=== PATIENT | female | born 1995 | race Caucasian/White ===

== ENCOUNTER 2017-01-02 06:24 | Inpatient (IN) ==
[2017-01-02] MEDS ORDERED: ONDANSETRON 4 MG/2 ML VIAL IV PRN (07:19)
[2017-01-02] MEDS ORDERED: MEPERIDINE 50 MG/1 ML VIAL IM PRN (07:19)
[2017-01-02] MEDS ORDERED: OXYTOCIN/LR 20 UNIT/1,000 ML BAG IV SCH (07:30)
[2017-01-02 07:34] LABS: Basophils # 0.1 10*3/uL (0.0-0.2); Basophils % 0.4 % (0.0-0.8); Eosinophils # 0.3 10*3/uL (0.0-0.87); Eosinophils % 1.7 % (0.00-10.9); Hematocrit 33.5 VOL% (35.7-47.0); Hemoglobin 11.3 GM/DL (12.0-16.0); Immature Granulocytes % 1.9 %; Immature Granulocytes Absolute 0.28 #; Lymphocytes # 2.4 10*3/uL (1.4-4.0); Lymphocytes % 15.7 % (21.3-54.2); Mean Corpuscular HGB Conc 33.7 GM/DL (32-36); Mean Corpuscular Hemoglobin 30 PG (27-34); Mean Corpuscular Volume 88.9 FL (87-102); Monocytes # 1.5 10*3/uL (0.11-0.8); Monocytes % 10.2 % (1.7-12.7); Neutrophils # 10.5 10*3/uL (1.4-7.4); Neutrophils % 70.1 % (38.7-73.9); Platelet Count 207 T/CUMM (130-400); Red Blood Count 3.77 MC/CUMM (3.8-5.5); Red Cell Distribution Width 12.7 % (9.3-17.3)
[2017-01-02] MEDS: LACTATED RINGERS 1,000 ML IV SCH ×2 (07:39→15:03)
[2017-01-02 08:01] LABS: Alanine Aminotransferase 18 U/L (13-56); Albumin 2.9 G/DL (3.4-5.0); Alkaline Phosphatase 146 U/L (45-117); Aspartate Amino Transferase 15 U/L (0-37); Bilirubin,Total < 0.39 MG/DL (0.2-1.0); Blood Urea Nitrogen 6 MG/DL (7-18); Calcium 8.6 MG/DL (8.5-10.1); Glucose 80 MG/DL (74-106); Osmolality,Calculated 271.7 MOS/KG (273-304); Potassium 3.4 MMOL/L (3.5-5.1); Sodium 138 MMOL/L (136-145); Total Protein 6.8 G/DL (6.4-8.3)
[2017-01-02] MEDS ORDERED: AMPICILLIN INJ 2,000 MG in SODIUM CHLORIDE 0.9% 100 ML IV ONE (08:14)
--- NOTE | 2017-01-02 09:14 | OB/GYN History & Physical ---
History of Present Illness Chief complaint: In for elective induction of labor due to term . History of present illness: Ms. Bundy is a 21 year old female who is a 2 para 1 her SUNI is 10-17 for estimated gestational age of 39 weeks and 2 days. The patient presents for elective induction of labor due to term . The risk and benefits been thoroughly discussed with this patient significant other, plan of care has been discussed with Dr. Thompson and all parties are in agreement plan. The patient received her care at the [facility] and she received routine care throughout, her course was uneventful. labs: She is O+, antibody screen is negative, hepatitis B negative, HIV negative, RPR is nonreactive, GBS culture is positive. The patient has had a previous vaginal delivery of a liveborn infant that weighed 6 pounds and 9 ounces, she reported no complications with that . Home Medications Medication Instructions Recorded Confirmed Type Vits #90/Iron Fum/FA 1 each PO DAILY 01/02/17 01/02/17 History [ Formula Tablet] Ranitidine Tab [Zantac Tab] 150 mg PO BID 01/02/17 01/02/17 History Allergies Allergy/AdvReac Type Severity Reaction Status Date / Time No Known Allergies Allergy Verified 01/02/17 07:17 12 point system: reviewed and no additional remarkable complaints except as stated Medical,Surgical,& Family Hx - Medical History Medical History: noncontributory - Surgical History HEENT Surgeries: Surgical HX of: Tonsilectomy & Adenoidectomy - Family History Family History: Reports;: Family Diabetes (mgm) - Social History Smoking Status: Former smoker (Patient smoked a half a pack of cigarettes a day until she found out she was .) Have you smoked in the last 12 months: Yes Frequency of Alcohol Use: None Type of Drug Use: None Marital Status: Single Lives With:: Significant Other Functional capacity: independent ambulation 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 Vitals: Vital Signs Temp Pulse Resp BP Pulse Ox 01/02/17 08:00 98.1 F 92 H 20 131/70 100 General appearance: no acute distress - Antepartum / Post Antepartum Exam Cervix - Dilatation: 4 cm Effacement: 70% Station: -2 Rupture: Intact Presentation: Vertex Heart Rate: 140s Breast: bilateral: normal Abdomen obstetrics: Present: bowel sounds normal Vagina: Present: normal moisture, discharge Uterus exam: Present: enlarged Anus/Rectum: Present: normal perianal skin - Respiratory Respiratory exam: Present: clear to auscultation bilaterally - Cardiovascular Cardiovascular exam: Present: regular rate and rhythm - GI/Abdominal GI/Abdominal exam: Present: normal bowel sounds, soft - Extremities Exam Extremities exam: Present: normal inspection - Back Exam Back exam: Present: normal inspection - Neurological Exam Neurological exam: Present: alert, oriented X3 - Psychiatric Psychiatric exam: Present: normal affect, normal mood - Skin Skin exam: Present: normal color, warm Assessment and Plan (1) 39 weeks gestation of Status: Acute Assessment and plan: Admit IV fluids IV Pitocin per protocol Artificial rupture membranes when appropriate Internal monitors if indicated Epidural anesthesia if desired IV antibiotics prophylactically for positive GBS culture Anticipate . Current Visit: Yes Results - Labs CBC & BMP: 01/02/17 07:26 01/02/17 07:26
[2017-01-02] MEDS: BUTORPHANOL 2 MG/ML VIAL IV PRN ×2 (10:45→15:00)
[2017-01-02] MEDS: AMPICILLIN INJ 1,000 MG in SODIUM CHLORIDE 0.9% 100 ML IV SCH ×2 (12:22→16:13)
[2017-01-02] MEDS ORDERED: miSOPROStol 200 MCG TABLET ONE (12:52)
[2017-01-02] MEDS ORDERED: LIDOCAINE 1% 50 ML VIAL ONE (12:52)
--- NOTE | 2017-01-02 17:29 | Event Note ---
Ms. Bundy presented to the labor department for elective induction of labor due to term . The risks and benefits were discussed with her. She was in agreement with plan of care. Stage I: The patient presented to the labor department and was started on IV Pitocin per protocol. Artificial rupture membranes was performed clear fluid noted. The patient received IV pain meds for pain control. She progressed in labor with a CAT 1 tracing. She had an uneventful course of labor. Stage II: The patient was complaining of pain oppression desire to push. She was instructed on effective pushing. She pushed for approximately 10 minutes. The infant's head was then delivered, the mouth and nose suctioned on perineum. The female infant was delivered at 1716. Apgars were 9 at 1 minute and 9 at 5 minutes. weight was 6 pounds and 14 0o. A cord pH was obtained and sent to the lab. The was placed on the mom's abdomen for skin to skin bonding. Stage III: A spontaneous delivery of a Burt placenta with a 3 vessel cord noted. The placenta was further examined. Grossly intact. Vagina and cervix were inspected with no tears or lacerations noted. Estimated blood loss was approximately 150 cc. At the time of dictation mother and baby are in stable condition.
[2017-01-02] MEDS ORDERED: ACETAMINOPHEN/CODEINE 300-30 MG TABLET PO PRN (17:38)
[2017-01-02 18:27] LABS: Cord Venous Blood HCO3 21.1 MMOL/L; Cord Venous Blood PCO2 40.4 MMHG; Cord Venous Blood PO2 32.6
[2017-01-02] MEDS ORDERED: MEASLES/MUMPS/RUBELLA VACCINE 0.5 ML VIAL SUBCUT ONE (20:35)
[2017-01-02] MEDS ORDERED: HYDROCORTISONE 2.5% RECTAL CREAM 30 GM TUBE TOP PRN (20:35)
[2017-01-02] MEDS ORDERED: ACETAMINOPHEN 325 MG TABLET PO PRN (20:35)
[2017-01-02] MEDS ORDERED: DIPH/TET/ACEL PERT BOOSTER VACCINE 0.5 ML VIAL IM ONE (20:35)
[2017-01-02] MEDS ORDERED: LANOLIN 50% CREAM 0.3 OZ TUBE TOP PRN (20:35)
[2017-01-02] MEDS ORDERED: RHO(D) IMMUNE GLOBULIN 300 MCG SYRINGE IM ONE (20:35)
[2017-01-02] MEDS ORDERED: BENZOCAINE 20%/MENTHOL 0.5% SPRAY 56 GM CAN TOP PRN (20:35)
[2017-01-02] MEDS ORDERED: WITCH HAZEL PADS 100/JAR TOP PRN (20:35)
[2017-01-02] MEDS ORDERED: oxyCODONE/ACETAMINOPHEN 5-325 MG TABLET PO PRN ×2 (20:35)
[2017-01-02] MEDS ORDERED: BISACODYL 10 MG SUPP RECTAL PRN (20:35)
[2017-01-02] MEDS: IBUPROFEN 800 MG TABLET PO PRN (21:04)
[2017-01-02] MEDS: DOCUSATE SODIUM 100 MG CAPSULE PO SCH (21:04)
[2017-01-02] MEDS: guaiFENesin 200 MG/10 ML UDCUP PO PRN (22:18)
[2017-01-03] MEDS ORDERED: oxyCODONE/ACETAMINOPHEN 5-325 MG TABLET PO PRN (03:50)
[2017-01-03] MEDS: oxyCODONE/ACETAMINOPHEN 5-325 MG TABLET PO PRN ×2 (04:04→09:37)
[2017-01-03] MEDS: IBUPROFEN 800 MG TABLET PO PRN ×2 (04:04→09:37)
[2017-01-03] MEDS: guaiFENesin 200 MG/10 ML UDCUP PO PRN ×2 (04:09→18:08)
[2017-01-03 05:57] LABS: Basophils % 0.2 % (0.0-0.8); Eosinophils # 0.2 10*3/uL (0.0-0.87); Eosinophils % 1.3 % (0.00-10.9); Hematocrit 29.2 VOL% (35.7-47.0); Immature Granulocytes % 0.9 %; Immature Granulocytes Absolute 0.15 #; Lymphocytes # 2.7 10*3/uL (1.4-4.0); Lymphocytes % 15.6 % (21.3-54.2); Mean Corpuscular HGB Conc 34.2 GM/DL (32-36); Mean Corpuscular Hemoglobin 30 PG (27-34); Mean Corpuscular Volume 87.4 FL (87-102); Mean Platelet Volume 12.1 FL (9.6-12.0); Monocytes # 1.8 10*3/uL (0.11-0.8); Monocytes % 10.3 % (1.7-12.7); Neutrophils # 12.2 10*3/uL (1.4-7.4); Neutrophils % 71.7 % (38.7-73.9); Platelet Count 179 T/CUMM (130-400); Red Blood Count 3.34 MC/CUMM (3.8-5.5); Red Cell Distribution Width 12.6 % (9.3-17.3); White Blood Count 17.1 T/CUMM (4-12)
--- NOTE | 2017-01-03 09:32 | OB/GYN Progress Note ---
Assessment and Plan (1) 39 weeks gestation of Status: Acute Assessment and plan: Admit IV fluids IV Pitocin per protocol Artificial rupture membranes when appropriate Internal monitors if indicated Epidural anesthesia if desired IV antibiotics prophylactically for positive GBS culture Anticipate . Current Visit: Yes (2) Vaginal delivery Status: Acute Assessment and plan: Initiate routine order. 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 Bonding well with . 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 - Constitutional Vitals: Vital Signs Temp Pulse Resp BP Pulse Ox 01/03/17 07:17 96.9 F L 62 18 105/58 97 01/03/17 04:04 97.0 F L 75 16 106/82 97 01/03/17 03:00 18 01/03/17 01:00 18 01/03/17 00:10 97.5 F L 89 18 106/69 97 01/02/17 23:15 97.6 F 81 18 113/62 96 01/02/17 22:15 97.6 F 92 H 20 124/76 98 01/02/17 21:15 98.2 F 86 18 106/70 98 01/02/17 20:45 98.2 F 91 H 20 124/74 98 01/02/17 20:15 98.5 F 97 H 20 137/83 97 01/02/17 16:00 98.5 F 80 20 110/58 01/02/17 12:00 98.2 F 63 18 107/57 98 General appearance: no acute distress - Antepartum / Post Antepartum Exam Breast: bilateral: normal Abdomen obstetrics: Present: bowel sounds normal Vagina: Present: normal moisture, discharge Uterus exam: Present: enlarged Anus/Rectum: Present: normal perianal skin - Head Head exam: Present: normal inspection - Respiratory Respiratory exam: Present: clear to auscultation bilaterally - Cardiovascular Cardiovascular exam: Present: regular rate and rhythm - GI/Abdominal GI/Abdominal exam: Present: normal bowel sounds, soft - Extremities Exam Extremities exam: Present: normal inspection - Neurological Exam Neurological exam: Present: alert, oriented X3 - Psychiatric Psychiatric exam: Present: normal affect, normal mood - Skin Skin exam: Present: normal color, warm Results - Labs CBC & BMP: 01/03/17 05:41 01/02/17 07:26
[2017-01-03] MEDS: DOCUSATE SODIUM 100 MG CAPSULE PO SCH ×2 (09:37→21:12)
[2017-01-04] MEDS: oxyCODONE/ACETAMINOPHEN 5-325 MG TABLET PO PRN ×2 (02:19→09:43)
[2017-01-04] MEDS: DOCUSATE SODIUM 100 MG CAPSULE PO SCH (09:41)
[2017-01-04 10:26] VITALS: BP 113/70
--- NOTE | 2017-01-04 12:30 | Discharge Summary ---
Hospital Course - Hospital Course Hospital Course: Status post vaginal Doing well, ambulating well, no shortness of breath or chest pain Abdomen soft uterus is firm Extremities well no limits neurologic grossly intact Assessment plan We will DC today in follow-up in our office in approximately 6 weeks Specialty Discharge - Follow Up or Referrals Follow up with: Kellee Thompson MD [Physician] - (6 weeks ) Discharge Plan - Discharge Data Condition at Discharge: Stable Discharge Diet: advance to your usual diet Activity: resume usual activities as tolerated Hygiene: no restrictions Weight Bearing at Discharge: full weight bearing Driving: no restrictions Contact your physician if you experience:: fever over 101, Bleeding - Discharge Medications New Ibuprofen Tab [Motrin Tab] 800 mg PO Q6H PRN #30 tablet PRN Reason: Pain Moderate (4-7) oxyCODONE/ACETAMINOPHEN 5-325 [Percocet 5-325] 1 tablet PO Q4H PRN #30 tablet PRN Reason: Pain Moderate (4-7) No Action Vits #90/Iron Fum/FA [ Formula Tablet] 1 each PO DAILY Ranitidine Tab [Zantac Tab] 150 mg PO BID - Follow Up or Referral Follow Up: Kellee Thompson MD [Physician] - (6 weeks ) - Forms/Instructions Instructions: Perineal Care (DC), Vaginal Delivery (DC), Bleeding (DC) Exam - Constitutional Vitals: Period Temp Pulse Resp BP Sys/Altman Pulse Ox Last 24 Hr 96.8 F-97.6 F 64-86 18-20 92-113/47-70 96-99 DS: Provider Date of admission: 01/02/17 07:19 Primary care physician: . No PCP Attending physician on admission: Kellee Thompson MD Consults: 01/02/17 07:19 Consult to Anesthesiology [CONS] Routine Consulting Provider: Reason for Anesthesiology: Epidural Consult Comment: Epidural for pain managment 01/02/17 20:[address] Recorder [CONS] Routine Consult Electronic Court Recorder: Breast Feeding Discharging clinician: Kellee Thompson MD
== END 2017-01-04 13:35 | disposition home or self-care (01) | DRG 560 ==
LOC: N.LDOUT 06:24 → N.LD 06:29 → N.OB 20:15
PROVIDERS: ADMIT Obstetrics & Gynecology; ATTEND Obstetrics & Gynecology

== ENCOUNTER 2020-02-01 05:46 | Inpatient (IN) ==
[2020-02-01] MEDS ORDERED: ONDANSETRON 4 MG/2 ML VIAL IV PRN ×2 (06:46→17:00)
[2020-02-01 07:24] LABS: Basophils # 0.1 10*3/uL (0.0-0.2); Basophils % 0.4 % (0.0-0.8); Eosinophils # 0.2 10*3/uL (0.0-0.87); Eosinophils % 1.4 % (0.00-10.9); Hematocrit 30.3 VOL% (35.7-47.0); Hemoglobin 9.5 GM/DL (12.0-16.0); Immature Granulocytes % 1.5 %; Lymphocytes # 1.9 10*3/uL (1.4-4.0); Lymphocytes % 14.9 % (21.3-54.2); Mean Corpuscular HGB Conc 31.4 GM/DL (32-36); Mean Corpuscular Volume 83.9 FL (87-102); Mean Platelet Volume 11.6 FL (9.6-12.0); Monocytes % 8.7 % (1.7-12.7); Neutrophils % 73.1 % (38.7-73.9); Platelet Count 193 T/CUMM (130-400); Red Blood Count 3.61 MC/CUMM (3.8-5.5); Red Cell Distribution Width 14.1 % (9.3-17.3)
[2020-02-01] MEDS: LACTATED RINGERS 1,000 ML IV SCH ×2 (07:28→16:15)
[2020-02-01 07:44] LABS: Alanine Aminotransferase 14 U/L (13-56); Albumin 2.5 G/DL (3.4-5.0); Alkaline Phosphatase 142 U/L (45-117); Aspartate Amino Transferase 10 U/L (0-37); Bilirubin,Total < 0.39 MG/DL (0.2-1.0); Blood Urea Nitrogen 6 MG/DL (7-18); Calcium 8.9 MG/DL (8.5-10.1); Estimated Glom Filtration Rate 150 ML/MIN; Glucose 78 MG/DL (74-106); Osmolality,Calculated 269.8 MOS/KG (273-304); Total Protein 6.4 G/DL (6.4-8.3)
[2020-02-01] MEDS ORDERED: OXYTOCIN/LR 20 UNIT/1,000 ML BAG IV SCH (08:00)
[2020-02-01] MEDS ORDERED: BUTORPHANOL 2 MG/ML VIAL IV PRN (12:34)
[2020-02-01] MEDS ORDERED: BUTORPHANOL 1 MG/ML VIAL ONE (15:32)
[2020-02-01] MEDS ORDERED: BUTORPHANOL 1 MG/ML VIAL IV ONE (15:34)
[2020-02-01] MEDS ORDERED: METHYLERGONOVINE 0.2 MG/1 ML AMP ONE (15:40)
[2020-02-01] MEDS ORDERED: miSOPROStoL 200 MCG TABLET ONE (15:40)
[2020-02-01] MEDS ORDERED: TRANEXAMIC ACID 1,000 MG/10 ML VIAL ONE (15:40)
[2020-02-01] MEDS ORDERED: CARBOPROST TROMETHAMINE 250 MCG/ML AMP IM ONE (15:41)
[2020-02-01] MEDS ORDERED: LIDOCAINE 1% 50 ML VIAL ONE (15:43)
[2020-02-01] MEDS ORDERED: SODIUM CHLORIDE 0.9% 0 ML IV ONE (15:43)
[2020-02-01] MEDS ORDERED: METHYLERGONOVINE 0.2 MG/1 ML AMP IM ONE (16:38)
[2020-02-01] MEDS ORDERED: LIDOCAINE 1% 20 ML VIAL MISC INJ ONE (16:40)
[2020-02-01] MEDS ORDERED: BISACODYL 10 MG SUPP RECTAL PRN (17:00)
[2020-02-01] MEDS ORDERED: BENZOCAINE 20%/MENTHOL 0.5% SPRAY 56 GM CAN TOP PRN (17:00)
[2020-02-01] MEDS ORDERED: HYDROCORTISONE 2.5% RECTAL CREAM 30 GM TUBE TOP PRN (17:00)
[2020-02-01] MEDS ORDERED: OXYTOCIN/LR 20 UNIT/1,000 ML BAG IV ONE (17:00)
[2020-02-01] MEDS ORDERED: LANOLIN 50% CREAM 0.3 OZ TUBE TOP PRN (17:00)
[2020-02-01] MEDS ORDERED: ACETAMINOPHEN 325 MG TABLET PO PRN (17:00)
[2020-02-01] MEDS ORDERED: RHO(D) IMMUNE GLOBULIN 300 MCG SYRINGE IM ONE (17:00)
[2020-02-01] MEDS ORDERED: MEASLES/MUMPS/RUBELLA VACCINE 0.5 ML VIAL SUBCUT ONE (17:00)
[2020-02-01] MEDS ORDERED: DIPH/TET/ACEL PERT BOOSTER VACCINE 0.5 ML VIAL IM ONE (17:00)
[2020-02-01] MEDS ORDERED: WITCH HAZEL PADS 100/JAR TOP PRN (17:00)
[2020-02-01] MEDS ORDERED: oxyCODONE/ACETAMINOPHEN 5-325 MG TABLET PO PRN ×2 (17:00)
[2020-02-01 17:19] LABS: Cord Venous Blood HCO3 22.8 MMOL/L; Cord Venous Blood PCO2 42.6 MMHG; Cord Venous Blood PO2 25.3 MMHG
[2020-02-01] MEDS ORDERED: LIDOCAINE 1% 50 ML VIAL MISC INJ ONE (17:30)
[2020-02-01] MEDS: DOCUSATE SODIUM 100 MG CAPSULE PO SCH (20:40)
[2020-02-01] MEDS: IBUPROFEN 800 MG TABLET PO PRN (23:08)
[2020-02-02 06:43] LABS: Basophils # 0.1 10*3/uL (0.0-0.2); Basophils % 0.3 % (0.0-0.8); Eosinophils # 0.2 10*3/uL (0.0-0.87); Eosinophils % 1.1 % (0.00-10.9); Hematocrit 27.5 VOL% (35.7-47.0); Hemoglobin 8.8 GM/DL (12.0-16.0); Immature Granulocytes % 1.3 %; Lymphocytes # 2.3 10*3/uL (1.4-4.0); Lymphocytes % 15.1 % (21.3-54.2); Mean Corpuscular Volume 83.1 FL (87-102); Mean Platelet Volume 11.1 FL (9.6-12.0); Monocytes % 11.1 % (1.7-12.7); Neutrophils % 71.1 % (38.7-73.9); Platelet Count 218 T/CUMM (130-400); Red Blood Count 3.31 MC/CUMM (3.8-5.5); Red Cell Distribution Width 14.1 % (9.3-17.3); White Blood Count 15.5 T/CUMM (4-12)
[2020-02-02] MEDS: DOCUSATE SODIUM 100 MG CAPSULE PO SCH ×2 (08:06→20:19)
[2020-02-02] MEDS: IBUPROFEN 800 MG TABLET PO PRN ×2 (12:40→18:00)
[2020-02-02] MEDS: PANTOPRAZOLE 40 MG TABLET PO SCH (13:15)
[2020-02-03 08:28] VITALS: BP 132/76
[2020-02-03] MEDS: PANTOPRAZOLE 40 MG TABLET PO SCH (09:03)
[2020-02-03] MEDS: DOCUSATE SODIUM 100 MG CAPSULE PO SCH (09:03)
[2020-02-03] MEDS: IBUPROFEN 800 MG TABLET PO PRN (10:07)
== END 2020-02-03 11:50 | disposition home or self-care (01) | DRG 560 ==
LOC: N.LDOUT 05:46 → N.LD 05:47 → N.OB 20:20
PROVIDERS: ADMIT Obstetrics & Gynecology; ATTEND Obstetrics & Gynecology